=== PATIENT | female | born 1995 | race Two or more races ===

== ENCOUNTER 2016-12-30 17:10 | Observation (INO) | payer BC ==
[~2016-12-30] VITALS: Ht 167.6 cm; Wt 50.0 kg
[2016-12-30 18:02] LABS: DAU SCREEN DISCLAIMER
[2016-12-30 18:20] LABS: BLOOD UREA NITROGEN 13 mg/dL (7-18)
[2016-12-30 18:26] LABS: ASPARTATE AMINO TRANSFERASE 16 U/L (15-37)
[2016-12-30 18:33] LABS: ACETAMINOPHEN < 2 mcg/mL (10-30)
[2016-12-30 19:08] LABS: HEMATOCRIT 43.9 % (34.6-47.8); HEMOGLOBIN 14.6 g/dL (11.7-16.4)
[2016-12-30] MEDS ORDERED: PLEASE ENTER ALLERGIES MC SCH ×2 (22:09)
[2016-12-30] MEDS ORDERED: ACETAMINOPHEN 325 MG TABLET PO PRN (22:30)
[2016-12-30] MEDS ORDERED: QUETIAPINE 25MG TABLET PO ONE (22:30)
[2016-12-30 23:56] VITALS: BP 117/82
[2016-12-31 07:29] VITALS: BP 110/70
[2016-12-31] MEDS: QUETIAPINE 25MG TABLET PO SCH ×2 (09:16→20:48)
[2016-12-31 19:40] VITALS: BP 97/62
[2017-01-01 07:31] VITALS: BP 112/72
[2017-01-01] MEDS: QUETIAPINE 25MG TABLET PO SCH ×2 (09:50→20:20)
[2017-01-01 19:44] VITALS: BP 115/77
[2017-01-02 08:00] VITALS: BP 100/65
[2017-01-02] MEDS: QUETIAPINE 25MG TABLET PO SCH ×2 (08:19→20:42)
[2017-01-02 19:18] VITALS: BP 110/73
[2017-01-03 07:25] VITALS: BP 103/69
[2017-01-03] MEDS: QUETIAPINE 25MG TABLET PO SCH ×2 (08:35→20:49)
[2017-01-03] MEDS ORDERED: ACETAMINOPHEN 325 MG TABLET PO PRN (19:30)
[2017-01-03 19:45] VITALS: BP 113/81
[2017-01-04 08:07] VITALS: BP 121/80
[2017-01-04] MEDS: QUETIAPINE 25MG TABLET PO SCH (08:35)
== END 2017-01-04 15:30 ==
LOC: ED 19:55 → EDIP 23:04 → 3E 23:57
PROVIDERS: ADMIT Hospitalist; ATTEND Hospitalist
DX: F23 Brief psychotic disorder (principal); R45.1 Restlessness and agitation; F22 Delusional disorders; F31.9 Bipolar disorder, unspecified; F41.1 Generalized anxiety disorder
CPT/HCPCS: 36415; 80053; 80307; 80329; 81001; 84703; 85025; 87086; 99285; G0378; G0479; G0480

== ENCOUNTER 2017-03-02 01:46 | Emergency (ER) | payer BC ==
[~2017-03-02] VITALS: Ht 157.5 cm; Wt 59.0 kg
[2017-03-02] MEDS ORDERED: ZIPRASIDONE 20 MG INJ IM ONE (02:00)
== END 2017-03-02 02:14 | disposition left against medical advice (07) ==
LOC: ED 02:08
DX: F23 Brief psychotic disorder (principal)
CPT/HCPCS: 99284

== ENCOUNTER 2017-03-03 02:51 | Emergency (ER) | payer BC ==
[~2017-03-03] VITALS: Ht 157.5 cm; Wt 60.0 kg
[2017-03-03 03:45] VITALS: BP 123/82
== END 2017-03-03 04:10 | disposition home or self-care (01) ==
LOC: ED 03:36
DX: F23 Brief psychotic disorder (principal)
CPT/HCPCS: 99284